=== PATIENT | male | born 1990 | race Caucasian/White ===

== ENCOUNTER 2025-07-17 07:34 | Inpatient (IN) | payer OTHER, BC ==
[~2025-07-17] VITALS: Ht 185.4 cm; Wt 78.0 kg
[2025-07-17 08:13] LABS: HEMATOCRIT. 41.3 % (42.0-52.0); HEMOGLOBIN. 14.2 g/dL (14.0-18.0); MEAN PLATELET VOLUME 9.0 fl (7.4-10.4); PLATELET 110 x1000/uL (130-400); RED BLOOD CELL COUNT 4.38 mill/uL (4.7-6.1); RED CELL DISTRIBUTION WIDTH 14.2 % (11.6-14.6)
[2025-07-17] MEDS: LORAZEPAM 2MG/ML UD SYRINGE IV NR (08:32)
[2025-07-17 08:44] LABS: CREATININE 0.8 mg/dL (0.6-1.3); UREA NITROGEN BLOOD 9 mg/dL (9-23)
[2025-07-17 08:45] LABS: ETHANOL BLOOD < 10 mg/dL (<10)
[2025-07-17 08:46] LABS: ASPARTATE AMINOTRANSFERASE 309 IU/L (<34); BILIRUBIN DIRECT 1.1 mg/dL (<=3.0)
[2025-07-17 08:47] LABS: BILIRUBIN TOTAL 3.2 mg/dL (0.1-1.0); PROTEIN TOTAL 8.7 g/dL (6.0-8.3)
[2025-07-17] MEDS: FOLIC ACID 1 MG, THIAMINE HCL 100 MG, MVI, ADULT NO.1 10 ML in DEXTROSE 5% WATER 1,000 ML IV ONE (09:25)
[2025-07-17] MEDS ORDERED: POTASSIUM CHLORIDE 40 MEQ in DEXT 5% WATER 230 ML IV ONE (09:45)
[2025-07-17 09:53] LABS: BAND% 1.0 % (1.0-6.0); LYMPHOCYTES % MANUAL 8.0 % (20.0-50.0); MONOCYTES % MANUAL 8.0 % (2.0-8.0); NEUTROPHILS % MANUAL 83.0 % (45.0-75.0); PLATELET ESTIMATE DECREASED
[2025-07-17] MEDS ORDERED: THIAMINE HCL 100 MG/1 ML 2ML VIAL IM NR (10:00)
[2025-07-17 10:42] LABS: PHOSPHORUS 5.8 mg/dL (2.5-4.9)
[2025-07-17] MEDS: KCL 20MEQ/100ML PREMIX 100 ML IV SCH (11:02)
[2025-07-17] MEDS ORDERED: CHLORDIAZEPOXIDE 25MG CAPSULE PO PRN (11:15)
[2025-07-17] MEDS ORDERED: GUAIFENESIN 200MG/10ML SUGAR FREE UDC PO PRN (11:30)
[2025-07-17] MEDS ORDERED: DOCUSATE SODIUM 100MG CAPSULE PO PRN (11:30)
[2025-07-17] MEDS ORDERED: ONDANSETRON HCL 4MG/2ML INJ IV PRN (11:30)
[2025-07-17] MEDS ORDERED: MAGNESIUM/ALUMINUM HYDROXIDE/SIMETHICONE 30ML UDC PO PRN (11:30)
[2025-07-17] MEDS ORDERED: CLONIDINE 0.1MG TABLET PO PRN (11:30)
[2025-07-17] MEDS ORDERED: DEXTROSE 50% WATER 50ML SYRINGE IV PRN (11:30)
[2025-07-17] MEDS ORDERED: MIDAZOLAM HCL 5 MG/ML VIAL IV NR (11:30)
[2025-07-17] MEDS ORDERED: ACETAMINOPHEN 650MG SUPP PR PRN (11:30)
[2025-07-17] MEDS ORDERED: IPRATROPIUM/ALBUTEROL 0.5-3(2.5)MG/3ML NEB HHN PRN (11:30)
[2025-07-17] MEDS ORDERED: LORAZEPAM 2MG/ML UD SYRINGE IV PRN (11:58)
[2025-07-17] MEDS: MIDAZOLAM HCL 5 MG/5 ML VIAL IV NR (12:26)
[2025-07-17] MEDS: THIAMINE HCL 100 MG/1 ML 2ML VIAL IM SCH (12:27)
[2025-07-17] MEDS: LORAZEPAM 2MG/ML UD SYRINGE IV PRN (14:01)
[2025-07-17 16:05] LABS: HEPATITIS A AB IGM NEGATIVE (Negative); HEPATITIS B CORE AB IGM NEGATIVE (Negative)
[2025-07-17 16:06] LABS: HEPATITIS C AB NON REACTIVE (Neg) (Negative)
[2025-07-17 16:09] LABS: TRIGLYCERIDE 117.0 mg/dL (0-150)
[2025-07-17 16:10] LABS: HEPATITIS A AB IGM NEGATIVE (Negative); LDL CHOLESTEROL 139.0 mg/dL (5-100)
[2025-07-17 16:11] LABS: HEPATITIS B CORE AB IGM NEGATIVE (Negative); HEPATITIS C AB NON REACTIVE (Neg) (Negative)
[2025-07-17 16:15] LABS: T4 FREE 1.38 ng/dL (0.89-1.76)
[2025-07-17] MEDS: LACTATED RINGERS 1,000 ML IV NR (16:17)
[2025-07-17 16:56] VITALS: O2SAT 97
[2025-07-17] MEDS: MIDAZOLAM HCL 2 MG/2 ML VIAL IV NR (16:56)
[2025-07-17] MEDS: PANTOPRAZOLE SODIUM 40 MG/VIAL IV SCH (16:56)
[2025-07-17] MEDS ORDERED: DEXT 5%/0.9% NACL 1,000 ML IV SCH (18:45)
[2025-07-17 20:00] VITALS: BP 139/88; PULSE 119; RESP 19; TEMP 36.9; O2SAT 97
[2025-07-18] VITALS (7 sets, daily range): BP systolic 127–153; BP diastolic 79–97; PULSE 108–119; RESP 18–21; TEMP 36.1–36.974; O2SAT 97–98
[2025-07-18] MEDS: DEXT 5%/LACTATED RINGERS 1,000 ML IV SCH (00:46)
[2025-07-18 00:57] LABS: INR 1.1
[2025-07-18 06:42] LABS: HEMATOCRIT. 38.2 % (42.0-52.0); HEMOGLOBIN. 12.8 g/dL (14.0-18.0); MEAN PLATELET VOLUME 8.8 fl (7.4-10.4); PLATELET 111 x1000/uL (130-400); RED BLOOD CELL COUNT 4.09 mill/uL (4.7-6.1); RED CELL DISTRIBUTION WIDTH 14.0 % (11.6-14.6)
[2025-07-18 06:54] LABS: UREA NITROGEN BLOOD 9 mg/dL (9-23)
[2025-07-18 06:56] LABS: PHOSPHORUS 3.4 mg/dL (2.5-4.9)
[2025-07-18 07:23] LABS: CREATININE 0.2 mg/dL (0.6-1.3)
[2025-07-18] MEDS ORDERED: POTASSIUM CHLORIDE 40 MEQ in DEXT 5% WATER 230 ML IV ONE (08:30)
[2025-07-18] MEDS: MULTIVITAMINS,THER W-MINERALS TABLET PO SCH (10:44)
[2025-07-18] MEDS: KCL 20MEQ/100ML X 2 FOR TOTAL KCL 40MEQ/200ML IV SCH (10:44)
[2025-07-18] MEDS: FOLIC ACID 1MG TABLET PO SCH (10:44)
[2025-07-18] MEDS: MAGNESIUM 4 G PREMIX 100 ML IV SCH (13:15)
[2025-07-18] MEDS: CHLORDIAZEPOXIDE 25MG CAPSULE PO SCH (13:20)
[2025-07-18] MEDS: FOLIC ACID 1 MG, THIAMINE HCL 100 MG, MVI, ADULT NO.1 10 ML in DEXTROSE 5% WATER 1,000 ML IV SCH (16:26)
[2025-07-18] MEDS: LORAZEPAM 2MG/ML UD SYRINGE IV SCH (16:46)
[2025-07-18 17:17] LABS: LYMPHOCYTES % MANUAL 23.0 % (20.0-50.0); MONOCYTES % MANUAL 12.0 % (2.0-8.0); NEUTROPHILS % MANUAL 65.0 % (45.0-75.0); PLATELET ESTIMATE DECREASED
[2025-07-19] VITALS (7 sets, daily range): BP systolic 132–147; BP diastolic 81–97; PULSE 45–121; RESP 15–20; TEMP 36.7–37.2; O2SAT 97–99
[2025-07-19 13:04] LABS: HEMATOCRIT. 39.5 % (42.0-52.0); HEMOGLOBIN. 13.0 g/dL (14.0-18.0); MEAN PLATELET VOLUME 8.1 fl (7.4-10.4); PLATELET 159 x1000/uL (130-400); RED BLOOD CELL COUNT 4.10 mill/uL (4.7-6.1); RED CELL DISTRIBUTION WIDTH 14.0 % (11.6-14.6)
[2025-07-19 14:42] LABS: CREATININE 0.6 mg/dL (0.6-1.3)
[2025-07-19 14:43] LABS: UREA NITROGEN BLOOD 11 mg/dL (9-23)
[2025-07-19] MEDS: NICOTINE 14MG PATCH TD SCH (16:45)
[2025-07-20] VITALS: BP 135/90; PULSE 106; RESP 18; TEMP 37.2; O2SAT 98
[2025-07-20 04:00] VITALS: BP 133/89; PULSE 102; RESP 16; TEMP 37.2; O2SAT 99
[2025-07-20 08:00] VITALS: BP 130/89; PULSE 98; RESP 18; TEMP 37.1; O2SAT 98
[2025-07-20 08:50] LABS: HEMATOCRIT. 36.0 % (42.0-52.0); HEMOGLOBIN. 12.1 g/dL (14.0-18.0); MEAN PLATELET VOLUME 8.5 fl (7.4-10.4); PLATELET 166 x1000/uL (130-400); RED BLOOD CELL COUNT 3.81 mill/uL (4.7-6.1); RED CELL DISTRIBUTION WIDTH 13.5 % (11.6-14.6)
[2025-07-20 08:58] LABS: CREATININE 0.5 mg/dL (0.6-1.3); UREA NITROGEN BLOOD 6 mg/dL (9-23)
[2025-07-20] MEDS: THIAMINE HCL 100MG TABLET PO SCH (09:16)
[2025-07-20] MEDS: ENOXAPARIN 40MG/0.4ML SYR SUBCUT SCH (09:17)
[2025-07-20] MEDS ORDERED: FOLI-43 PO (11:11)
[2025-07-20] MEDS ORDERED: POTA-204 PO (11:11)
[2025-07-20 11:48] VITALS: BP 131/85; PULSE 89; RESP 18; TEMP 98.2
[2025-07-20 12:00] VITALS: BP 131/85; PULSE 89; RESP 18; TEMP 36.8; O2SAT 98
[2025-07-20 17:42] LABS: BAND% 1.0 % (1.0-6.0); LYMPHOCYTES % MANUAL 13.0 % (20.0-50.0); MONOCYTES % MANUAL 13.0 % (2.0-8.0); NEUTROPHILS % MANUAL 73.0 % (45.0-75.0); PLATELET ESTIMATE NORMAL
[2025-07-20 19:34] LABS: EOSINOPHILS % MANUAL 1.0 % (0.0-5.0); LYMPHOCYTES % MANUAL 15.0 % (20.0-50.0); MONOCYTES % MANUAL 27.0 % (2.0-8.0); NEUTROPHILS % MANUAL 57.0 % (45.0-75.0); PLATELET ESTIMATE NORMAL
== END 2025-07-20 12:30 | disposition home or self-care (01) | DRG 641 ==
LOC: ER 07:34 → 6WST 09:36 → EDBEDREQTM 09:43 → EDBEDREQSVC 10:36 → EDBEDREQ 10:36 → ENRESERV 16:37
PROVIDERS: ADMIT Internal Medicine; ATTEND Internal Medicine
DX: E51.2 Wernicke's encephalopathy (principal); M62.82 Rhabdomyolysis; F10.239 Alcohol dependence with withdrawal, unspecified; K70.9 Alcoholic liver disease, unspecified; G31.2 Degeneration of nervous system due to alcohol; E83.39 Other disorders of phosphorus metabolism; E87.6 Hypokalemia; E83.52 Hypercalcemia; S80.212A Abrasion, left knee, initial encounter; F17.200 Nicotine dependence, unspecified, uncomplicated; Y90.9 Presence of alcohol in blood, level not specified; Z79.899 Other long term (current) drug therapy; S00.12XA Contusion of left eyelid and periocular area, initial encounter; W18.39XA Other fall on same level, initial encounter; Y93.89 Activity, other specified; Y92.89 Other specified places as the place of occurrence of the external cause; Y99.8 Other external cause status
CPT/HCPCS: 36415; 71045; 76700; 80048; 80061; 80076; 80320; 82140; 82550; 82962; 83735; 84100; 84439; 84443; 85025; 86705; 86706; 86709; 87340; 93970; 96365; 96375; 99291; A4606; J1650; J2060; J2250; J2470; J3411; J3475; J3480; J3490; J7070; G0480